=== PATIENT | male | born 1980 | race Caucasian/White ===

== ENCOUNTER 2017-09-24 14:42 | Emergency (ER) ==
[2017-09-24 14:55] VITALS: BP 129/95; TEMP 98.4; BMI 31.8
[2017-09-24] MEDS ORDERED: ZOFRAN 4 MG/2 ML IM STA (16:01)
--- NOTE | 2017-09-24 17:01 | CT ---
EXAM: CT abdomen with and without contrast. CT pelvis with and without contrast. HISTORY: Upper gastrointestinal bleed. COMPARISON: 09/29/2011. TECHNIQUE: Multiple axial images of the abdomen and pelvis were obtained prior to and following intr avenous administration of 75 mL of Omnipaque-300, low osmolar. Images reformatted in the coronal [place]. FINDINGS: The lung bases are clear. No acute osseous abnormality identified. The liver is low density. The gallbladder, pancreas, spleen, adrenal glands are unremarkable. Bilat eral renal cysts are present. There is no hydronephrosis. Suspect distal esophageal wall thickening. There is no evidence for bowel obstruction or acute inflammation. Ill-defined fluid collection surro unding the appendix and cecum noted which is difficult to measure due to adjacent bowel but to roughl y measures 7.3 x 4 x 6.6 cm on postcontrast axial image 53 and coronal image 35. The appendix itself is dilated and fluid-filled measuring up to 1.3 cm transverse diameter on coronal image 45. No colette cent inflammation identified. There is a small amount of free pelvic fluid. No free air lymphadenop athy identified. Bladder is collapsed. IMPRESSION: 1. Dilated fluid-filled appendix with large ill defined periappendiceal fluid collection which could represent sequela of remote perforated appendicitis or mucocele. No adjacent inflammation identifie d currently. 2. Suspect distal esophagitis. 3. Fatty infiltration of the liver.
--- NOTE | 2017-09-24 17:05 | CT ---
Exam: CT of the chest with intravenous contrast. Comparison: 12/11/2009. Reason for exam: Cough, vomiting blood. FINDINGS: No pneumothorax, pleural effusion, or focal consolidation. There is diffuse thickening of the esophageal wall. The heart is not enlarged. The aorta is normal in course and caliber. The agusto ged osseous structures appear grossly unremarkable. No suspicious appearing osteoblastic or osteolytic lesions. Cystic structures in the renal parenchyma statistically represent cysts. The liver is lower in atten uation in the spleen on the contrasted exam. Impression: 1. Mild prominence of the esophageal wall may be accentuated by non distension but may also represen t inflammation and infection. 2. Otherwise, no acute imaging findings are seen within the thorax. 3. Renal hypodensities are statistically cysts. Ultrasound evaluation may be performed for further characterization.
--- NOTE | 2017-09-24 17:19 | ED.PDOC ---
General ED Provider: Dr. MYRA EFLDER Chief Complaint: Nausea/Vomiting Stated Complaint: upper G.I, Bleed Time Seen by Physician: 14:44 (present during exam was jac) Mode of Arrival: Walk-In Information Source: Patient Exam Limitations: No limitations Primary Care Provider: KIRAN LEONG Nursing and Triage Documentation Reviewed and Agree: Yes Reviewed sepsis parameters & appropriate labs ordered?: Yes System Inflammatory Response Syndrome: Not Applicable Sepsis Protocol: For patient's 13 years and over: Temp is 96.8 and below OR 101 and greater Pulse >90 BPM Resp >20/minute Acutely Altered Mental Status Are patient's symptoms suggestive of a new infection, such as: -Pneumonia -Skin, Soft Tissue -Endocarditis -UTI -Bone, Joint Infection -Implantable Device -Acute Abdominal Infection -Wound Infection -Meningitis -Blood Stream Catheter Infection -Unknown System Inflammatory Response Syndrome: Not Applicable GI Complaint Exam - GI Bleed Complaint/Exam Patient Complains of: Reports: Vomiting blood (small amount the moerate blood next episode possible confusion last night arrived fully alert today no deficits noted ) Onset/Duration: today no further bleeding in the ER at [facility] Symptoms Are: Resolved Severity: Reports: Hematemesis (x2). Denies: Blood-streaked stool, Black tarry stool, Bright red blood-rectum, Coffee ground emesis Location of Pain: Reports: None Character: Denies: Sharp, Dull, Burning, Cramping, Tearing, Colicky (pain free ) Aggravating: Reports: None Associated Signs and Symptoms: Denies: Back Pain, Pallor, Dizziness, Weakness, Syncope, Constipation, Nausea, Rectal pain, Bruising, Weight loss, Recent abnormal coags GI Bleed Risk Factors: Denies: ETOH abuse, Liver Disease, Esophageal varices, Hemorrhoid, Coumadin use, Pradaxa use, Plavix use, NSAID use, Aspirin use Recent Colonoscopy: No Related Surgical History: Reports: None Abdominal Findings: Present: None Review of Systems - Review Of Systems Constitutional: Reports: No symptoms Eyes: Reports: No symptoms Ears, Nose, Mouth, Throat: Reports: No symptoms Respiratory: Reports: No symptoms Cardiac: Reports: No symptoms GI: Reports: Abdominal pain : Reports: No symptoms Musculoskeletal: Reports: No symptoms Skin: Reports: No symptoms Neurological: Reports: No symptoms Endocrine: Reports: No symptoms Hematologic/Lymphatic: Reports: No symptoms All Other Systems: Reviewed and Negative Past Medical History - Past Medical History Previously Healthy: Yes Endocrine: Reports: None Cardiovascular: Reports: None Respiratory: Reports: None Hematological: Reports: None Gastrointestinal: Reports: None Genitourinary: Reports: None Neuro/Psych: Reports: None Musculoskeletal: Reports: None Cancer: Reports: None - Surgical History General Surgical History: Reports: None - Family History Family History: Reports: None - Social History Smoking Status: Current some day smoker Hx Substance Use: No Alcohol Screening: Occasionally - Immunizations Tetanus Shot up to Date: Yes Physical Exam - Physical Exam Appearance: Well-appearing, No pain distress, Well-nourished Eyes: ZACK, EOMI, Conjunctiva clear ENT: Ears normal, Nose normal, Oropharynx normal Respiratory: Airway patent, Breath sounds clear, Breath sounds equal, Respirations nonlabored Cardiovascular: RRR, Pulses normal, No rub, No murmur GI/: Soft, Nontender, No masses, Bowel sounds normal, No Organomegaly Musculoskeletal: Normal strength, ROM intact, No edema, No calf tenderness Skin: Warm, Dry, Normal color Neurological: Sensation intact, Motor intact, Reflexes intact, Cranial nerves intact, Alert, Oriented Psychiatric: Affect appropriate, Mood appropriate Physician Notification - Case Discussed Physician Notified: Norberto Time of Notification: 17:27 (TRANSFER NOW) Critical Care Note - Critical Care Note Total Time (mins): 0 Course - Course Hematology/Chemistry: 09/24/17 15:15 09/24/17 15:15 Orders, Labs, Meds: Lab Review 09/24/17 09/24/17 09/24/17 15:15 15:15 15:15 WBC 10.34 H RBC 5.91 Hgb 16.9 Hct 49.3 MCV 83.4 MCH 28.6 MCHC 34.3 RDW Coeff of [place] 12.5 Plt Count 375 Immature Gran % (Auto) 0.4 Neut % (Auto) 69.4 Lymph % (Auto) 20.4 [place] % (Auto) 8.4 Eos % (Auto) 1.1 Baso % (Auto) 0.3 Immature Gran # (Auto) 0.0 Neut # 7.2 H Lymph # 2.1 [place] # 0.9 Eos # 0.1 Baso # 0.0 PT 9.9 INR 0.97 APTT 25.5 Sodium 140 Potassium 3.7 Chloride 103 Carbon Dioxide 27 Anion Gap 13.7 BUN 12 Creatinine 0.89 Estimated GFR (MDRD) 97.00 BUN/Creatinine Ratio 13.48 Glucose 91 Calcium 9.8 Total Bilirubin 0.5 AST 19 ALT 41 Alkaline Phosphatase 104 Total Protein 8.4 H Albumin 3.8 Globulin 4.6 Albumin/Globulin Ratio 0.83 Amylase 31 Lipase 27 Urine Color Urine Clarity Urine pH Ur Specific [place] Urine Protein Urine Glucose (UA) Urine Ketones Urine Blood Urine Nitrite Urine Bilirubin Urine Urobilinogen Ur Leukocyte Esterase Urine Microscopic RBC Ur Squamous Epith Cells Urine Mucus 09/24/17 15:50 WBC RBC Hgb Hct MCV MCH MCHC RDW Coeff of [place] Plt Count Immature Gran % (Auto) Neut % (Auto) Lymph % (Auto) [place] % (Auto) Eos % (Auto) Baso % (Auto) Immature Gran # (Auto) Neut # Lymph # [place] # Eos # Baso # PT INR APTT Sodium Potassium Chloride Carbon Dioxide Anion Gap BUN Creatinine Estimated GFR (MDRD) BUN/Creatinine Ratio Glucose Calcium Total Bilirubin AST ALT Alkaline Phosphatase Total Protein Albumin Globulin Albumin/Globulin Ratio Amylase Lipase Urine Color Yellow Urine Clarity Clear Urine pH 7.0 Ur Specific [place] 1.020 Urine Protein 1+ Urine Glucose (UA) Negative Urine Ketones 1+ Urine Blood 1+ Urine Nitrite Negative Urine Bilirubin 1+ Urine Urobilinogen 0.2 Ur Leukocyte Esterase Negative Urine Microscopic RBC 5-10 Ur Squamous Epith Cells 0-2 Urine Mucus 1+ Orders Category Date Time Status NPO REMINDER: IMAGING ONCE CARE 09/24/17 15:15 Completed NPO REMINDER: IMAGING ONCE CARE 09/24/17 15:16 Completed ED IV/MEDIPORT/POWERPORT .ONCE EMERGENCY 09/24/17 15:14 Active AMYLASE Stat LAB 09/24/17 15:15 Completed CBC W/ AUTO DIFF Stat LAB 09/24/17 15:15 Completed COMPREHENSIVE METABOLIC PANEL Stat LAB 09/24/17 15:15 Completed LIPASE Stat LAB 09/24/17 15:15 Completed PARTIAL THROMBOPLASTIN TIME Stat LAB 09/24/17 15:15 Completed PT WITH INR Stat LAB 09/24/17 15:15 Completed URINALYSIS C & S IF INDICATED Stat LAB 09/24/17 15:50 Completed 0.9 % Sodium Chloride [Saline Flush] MEDS 09/24/17 15:14 Active 1 syr IVF PRN PRN Ondansetron HCl/Pf [Zofran 4 mg/2 ml] MEDS 09/24/17 16:01 Discontinued 4 mg IM ONCE STA CT ABDOMEN/PELVIS W/WO CONTRAS Stat RADS 09/24/[address] 15:[address] CHEST W/CONTRAST Stat RADS 09/24/17 15:15 Completed Medications Generic Name Dose Route Start Last Admin Trade Name Freq PRN Reason Stop Dose Admin Sodium Chloride 1 syr 09/24/17 15:14 Saline Flush IVF PRN PRN To flush IV Discontinued Medications Generic Name Dose Route Start Last Admin Trade Name Freq PRN Reason Stop Dose Admin Ondansetron HCl 4 mg 09/24/17 16:01 09/24/17 16:05 Zofran 4 Mg/2 Ml IM 09/24/17 16:02 4 mg ONCE STA Administration Vital Signs: Temp Pulse Resp BP Pulse Ox 09/24/17 14:44 98.4 F 122 H 20 129/95 H 99 Departure - Departure Time of Disposition: 18:00 Disposition: TSF SHORT-TRM HOSP Discharge Problem: Upper GI bleed Instructions: Gastrointestinal Bleeding (ED) Condition: Good Pt referred to PMD for follow-up: Yes Additional Instructions: Please call your Family Physician as soon as possible to schedule a follow-up appointment. Allergies/Adverse Reactions: Allergies Penicillins Adverse Reaction (Verified 09/24/17 15:12) Disposition Discussed With: Patient
== END 2017-09-24 18:20 | disposition short-term general hospital (02) ==
LOC: ED 14:42
DX: K92.0 Hematemesis (principal); F17.210 Nicotine dependence, cigarettes, uncomplicated
CPT/HCPCS: 36415; 80053; 81001; 82150; 83690; 85025; 85610; 85730; 96372; 96374; 96375; 99285